=== PATIENT | female | born 1990 | race Caucasian/White ===

== ENCOUNTER 2017-03-02 18:49 | Emergency (ER) | payer BC, MEDICAID, OTHER, SELFPAY ==
[~2017-03-02] VITALS: Ht 162.6 cm; Wt 51.4 kg
[2017-03-02 18:52] VITALS: BP 126/80
[2017-03-02 19:41] LABS: HCG UR OBC PASS
== END 2017-03-02 20:17 | disposition home or self-care (01) ==
LOC: ED 20:11
DX: N30.01 Acute cystitis with hematuria (principal)
CPT/HCPCS: 81001; 81025; 87077; 87086; 99284